=== PATIENT | female | born 1970 | race Caucasian/White ===

== ENCOUNTER 2017-11-14 06:33 | Day surgery (SDC) | payer OTHER ==
[~2017-11-14] VITALS: Ht 175.3 cm; Wt 95.7 kg
[~2017-11-14 06:33] MED LIST: CLARITIN,ALAVAR10 MG PO; WOMEN MULTIVIT1 EACH PO
[2017-11-14 07:45] VITALS: BP 118/60; BP 119/64
[2017-11-14] MEDS ORDERED: IBUPROFEN800 MG PO (09:06)
[2017-11-14 09:38] VITALS: BP 139/72
== END 2017-11-14 10:10 | disposition home or self-care (01) ==
LOC: SDC 06:33
DX: N92.0 Excessive and frequent menstruation with regular cycle (principal); Z87.891 Personal history of nicotine dependence
CPT/HCPCS: 88305; J0131; J0330; J0690; J1100; J1885; J2250; J2405; J2710; J3010

== ENCOUNTER 2018-01-02 08:42 | Emergency (ER) | payer OTHER ==
[~2018-01-02] VITALS: Ht 175.3 cm; Wt 94.5 kg
[~2018-01-02 08:42] MED LIST changes: +IBUPROFEN800 MG PO
[2018-01-02 09:26] LABS: CHLORIDE 103 mEq/L (99-109); POTASSIUM 5.5 mEq/L (3.7-5.4); SODIUM 138 mEq/L (136-147)
[2018-01-02 09:27] LABS: GLUCOSE 106 mg/dL (70-99)
[2018-01-02 09:31] LABS: CREATININE 0.8 mg/dL (0.6-1.3); GFR ESTIMATE (CALCULATED) > 59 mL/min/
[2018-01-02 09:32] LABS: UREA NITROGEN (BUN) 9 mg/dL (9-23)
[2018-01-02 10:02] LABS: BASOPHIL (%) 0.3 % (0-1); EOSINOPHIL (%) 0.8 % (0-5); EOSINOPHIL COUNT 0.1 K/uL (0-0.3); HEMATOCRIT 37.3 % (36.0-46.0); HEMOGLOBIN 12.4 G/DL (11.9-15.5); IMMATURE GRANULOCYTE (%) 0.7 % (0.0-0.7); LYMPHOCYTE (%) 8.4 % (15-42); LYMPHOCYTE COUNT 1.1 K/uL (1.0-2.8); MCH 29.1 PG (29.0-34.0); MCHC 33.2 G/DL (30.0-36.0); MCV 87.6 FL (83-99); MONOCYTE (%) 7.7 % (3-12); NEUTROPHIL (%) 82.1 % (45-76); NEUTROPHIL COUNT 10.9 K/uL (1.8-6.4); RBC DIS.WIDTH-CV 13.7 % (11.8-14.6); RBC DIS.WIDTH-SD 43.7 % (39-53); RED BLOOD COUNT 4.26 M/uL (3.80-5.20); WHITE BLOOD COUNT 13.3 K/uL (4.1-10.2)
[2018-01-02 10:47] LABS: PLAT.SUFFICIENCY ADEQUATE; PLATELET COUNT 257 K/uL (156-360)
[2018-01-02 11:03] LABS: APPEARANCE SL.HAZY ((CLEAR)); BILIRUBIN NEGATIVE; BLOOD NEGATIVE; COLOR YELLOW ((YELLOW)); GLUCOSE (STRIP) NEGATIVE; KETONES 5; LEUKOCYTES SMALL; NITRITE NEGATIVE; PROTEIN (STRIP) NEGATIVE; SPECIFIC GRAVITY 1.026 (1.000-1.030); UROBILINOGEN 0.2 MG/DL (0.2-1.0)
[2018-01-02 11:09] LABS: BACTERIA 1+ /HPF; EPITHELIAL CELLS 2+ /HPF; MUCUS 2+ /LPF; RED BLOOD CELLS 0-5 /HPF (0-5); WHITE BLOOD CELLS 0-5 /HPF (0-5)
[2018-01-02] MEDS ORDERED: PERCOCET 5/31 TABLET PO (11:20)
[2018-01-02] MEDS ORDERED: FLAGYL500 MG PO (11:20)
[2018-01-02] MEDS ORDERED: CIPRO500 MG PO (11:20)
[2018-01-02 11:46] VITALS: BP 146/86
== END 2018-01-02 11:50 | disposition home or self-care (01) ==
LOC: EME 08:42
PROVIDERS: Emergency Medicine
DX: K57.32 Diverticulitis of large intestine without perforation or abscess without bleeding (principal); Z87.891 Personal history of nicotine dependence; Z86.79 Personal history of other diseases of the circulatory system
CPT/HCPCS: 74176; 80048; 81003; 85025; 99281; 99284; J1885; J7030